=== PATIENT | female | born 1985 | race Caucasian/White ===

== ENCOUNTER 2017-09-27 05:38 | Inpatient (IN) | payer OTHER ==
--- NOTE | 2017-09-26 20:51 | MH ---
cc: Ion Velasquez MD DATE OF ADMISSION: 09/27/2017 HISTORY OF PRESENT ILLNESS: The patient is a 31-year-old female, 2, para 1. Patient is 39 weeks plus with previous history of section, for elective repeat section at term. The patient's obstetrical history is uncomplicated. Group B strep status is negative. Diabetic screening was negative. The patient's blood type is A positive. Previous section performed in 2014 at 41 weeks' gestation, delivery of a viable female weighing 8 pounds 7 ounces. The patient's obstetrical course at that delivery was significant for excessive blood loss during the procedure. The patient did not require a transfusion. PAST MEDICAL HISTORY: The patient has had a history of seizures in the distant past. She has been free of any seizure activity. . ALLERGIES: THE PATIENT HAS NO KNOWN DRUG ALLERGIES. CURRENT MEDICATIONS: Include vitamins only. The patient has no other systemic or chronic disease conditions. FAMILY HISTORY: Noncontributory. SOCIAL HISTORY: The patient is . She is a full-time teacher. Denies alcohol, tobacco or illicit substance use. PHYSICAL EXAMINATION: GENERAL: The patient is a well-appearing, well-nourished female, in no acute distress. VITAL SIGNS: Stable. Blood pressure is 118/78, pulse and respiratory rate are normal. heart tones in the 140s to 150s. NECK: Shows no adenopathy or thyromegaly. Neck is supple, full range of motion. LUNGS: Clear in all gayle. CARDIAC: Regular rate and rhythm without murmur, rub or gallop. ABDOMEN: Gravid, full-term. Previous Pfannenstiel incision is notable for keloid scar, otherwise intact. No herniation. PELVIC: Deferred. EXTREMITIES: Symmetrical, full range of motion. There is no cyanosis, clubbing, or edema. NEUROLOGIC: Grossly intact, nonfocal. ASSESSMENT: The patient is a full-term intrauterine gestation with previous history of section, for elective repeat section at term. Group B streptococcus status is negative. Diabetic status, normal Glucola. The patient's blood type is A positive. Ion Velasquez MD [facility]/ANTONIO Fuentes: 09/26/2017, 08:12 PM , 08:49 PM
[~2017-09-27] VITALS: Ht 162.6 cm; Wt 78.0 kg
[~2017-09-27 05:38] MED LIST: FE T325T PO; IBUP600 PO; OXYC1SOL5 PO; PERI8.6T PO; PREN0.01 PO; VALT500T PO
[2017-09-27] MEDS ORDERED: LACTATED RINGER'S 1000 ML IV ONE (06:15)
[2017-09-27] MEDS ORDERED: CITRIC ACID-SODIUM CITRATE LIQ 30 ML UDC PO SCH (06:15)
[2017-09-27] MEDS ORDERED: ceFAZolin 2 GM PREMIX 50 ML IV SCH (06:15)
[2017-09-27] MEDS ORDERED: LACTATED RINGER'S 1000 ML IV SCH (06:15)
[2017-09-27 06:22] LABS: BACTERIA, URINE RARE /hpf; BILIRUBIN, URINE NEG (NEG); BLOOD, URINE NEG (NEG); GLUCOSE,URINE NEG (NEG); KETONE, URINE NEG (NEG); MUCUS URINE FEW /lpf (OCC); NITRITE,URINE NEG (NEG); SQUAMOUS EPITHELIAL CELL URINE 5 /hpf (0-5); TRANSITIONAL EPI CELLS, URINE <1 /hpf; URINE COLOR YELLOW (YELLW/STRAW); URINE LEUKOCYTE ESTERASE NEG (NEG)
[2017-09-27 06:22] LABS: AUTOMATED NEUTROPHIL # 5.8 TH/MM3 (1.8-7.7); BASOPHIL # 0.1 TH/MM3 (0-0.2); BASOPHIL % 0.9 % (0.0-2.0); EOSINOPHIL # 0.1 TH/MM3 (0-0.4); EOSINOPHIL % 0.7 % (0.0-4.0); HEMATOCRIT 34.2 % (35.0-46.0); HEMOGLOBIN 11.2 GM/DL (11.6-15.3); LYMPH % 31.6 % (9.0-44.0); LYMPHOCYTE # 3.1 TH/MM3 (1.0-4.8); MEAN CELL VOLUME 77.5 FL (80.0-100.0); MEAN CORPUSCULAR HEMOGLOBIN 25.3 PG (27.0-34.0); MEAN CORPUSCULAR HGB CONC 32.6 % (32.0-36.0); MEAN PLATELET VOLUME 7.5 FL (7.0-11.0); MONO % 7.4 % (0.0-8.0); MONOCYTE # 0.7 TH/MM3 (0-0.9); NEUT % 59.4 % (16.0-70.0); PLATELET COUNT 368 TH/MM3 (150-450); RED BLOOD COUNT 4.41 MIL/MM3 (4.00-5.30); RED CELL DISTRIBUTION WIDTH 14.1 % (11.6-17.2); WHITE BLOOD COUNT 9.7 TH/MM3 (4.0-11.0)
[2017-09-27] MEDS ORDERED: ACETAMINOPHEN 1000 MG/100 ML 100 ML IV ONE (06:58)
[2017-09-27] MEDS ORDERED: MORPHINE SULFATE PF 5 MG/10 ML VIAL ONE (06:58)
[2017-09-27] MEDS ORDERED: ACETAMINOPHEN 325 MG TAB PO PRN (07:30)
[2017-09-27] MEDS ORDERED: ONDANSETRON ODT 4 MG TAB PO PRN (07:30)
[2017-09-27] MEDS ORDERED: SIMETHICONE 80 MG CHEWABLE TAB PO PRN (07:30)
[2017-09-27] MEDS ORDERED: KETOROLAC TROMETHAMINE 60 MG/2 ML (IM) VIAL IM PRN (07:30)
[2017-09-27] MEDS ORDERED: SODIUM CHLORIDE 0.9% FLUSH 10 ML FLUSH IV FLUSH PRN (07:30)
[2017-09-27] MEDS ORDERED: OXYTOCIN 30 UNITS-500ML PREMIX 500 ML IV ONE (07:30)
--- NOTE | 2017-09-27 09:13 | PD.OB.DELI ---
Procedure Note Section Procedure Performed by Ion Velasquez Procedure: Repeat Low Transverse Sec Indication for delivery: Desired elective repeat Informed consent obtained: For anesthesia, For procedure Confirmed correct: Patient, Procedure, Site, Time-out taken Anesthesia: Spinal Medication prior to procedure: As documented in eMAR Monitoring during procedure: Blood pressure monitoring, ekg monitor, doppler, monitor, Pulse oximetry Urinary catheter: Inserted using sterile technique, To dependent drainage Sterile preparation: Duraprep, In usual fashion Position: Supine with wedge to right side, Supine with safety belt applied Operative Features Skin Incision: Pfannenstiel Uterine Incision: Low transverse w/knife / blunt ext, Low transverse w/knife / scissors Membranes Ruptured: Artificially Delivery date: Sep 27, 2017 Delivery time: 08:15 Infant: Female One Minute : 8 Five Minute : 9 Weight: 3645 kg Status of : Viable, Cord blood, Umbilical cord, Nursery present Placenta delivered: Intact Medications: Antibiotics, Oxytocin Estimated blood loss: 650cc Procedure tolerated: Well Maternal Complications: Other (keloid scar; uterine -abdominal adhesions) Maternal Condition: Stable Condition: Stable Ion Velasquez MD Sep 27, 2017 09:13
[2017-09-27] MEDS ORDERED: SODIUM CHLORID 0.9% 500 ML INJ 500 ML IV ONE (12:00)
[2017-09-27] MEDS ORDERED: ONDANSETRON HCL 4 MG/2 ML VIAL IV ONE (12:00)
[2017-09-27] MEDS ORDERED: OXYTOCIN 10 UNIT/ML AMP IV ONE (12:00)
[2017-09-27] MEDS ORDERED: LACTATED RINGER'S 1000 ML INJ 1,000 ML IV ONE (12:00)
[2017-09-27] MEDS ORDERED: DEXAMETHASONE SOD PHOS 4 MG/ML VIAL IV ONE (12:00)
[2017-09-27] MEDS ORDERED: LACTATED RINGER'S 1000 ML INJ 1,000 ML IV SCH (12:17)
[2017-09-27] MEDS ORDERED: OXYTOCIN 30 UNITS-500ML PREMIX 500 ML IV PRN (12:30)
--- NOTE | 2017-09-27 13:20 | MP ---
cc: Ion Velasquez MD DATE OF OPERATION: DATE OF PROCEDURE: 09/27/2017. PREOPERATIVE DIAGNOSES: Term intrauterine , previous section, for elective repeat section. PROCEDURE: Repeat low transverse section, excision of keloid skin scar, lysis of adhesions, delivery of viable female infant. POSTOPERATIVE DIAGNOSES: Term intrauterine , previous section, for elective repeat section. SURGEON: Ion Velasquez MD ANESTHESIA: Spinal. ESTIMATED BLOOD LOSS: 650 mL DRAINS: Negrete to gravity. OPERATIVE FINDINGS: The patient had a large keloid scar of her Pfannenstiel incision. Intra-abdominal and peritoneal adhesions were noted secondary to the previous section. INDICATIONS: The patient at term, previous section, had elected for elective repeat . DESCRIPTION OF PROCEDURE: The patient was taken to the operating room and underwent spinal anesthetic without complication. She had a Negrete catheter inserted by sterile technique. She was prepped and draped and a timeout was conducted and agreed by all present in the room. The patient previously received Ancef 2 grams prophylactically. She had excellent pain control. The incision initiated by making an elliptical type incision below the previous Pfannenstiel scar to enable excision of the keloid. The incision was carried down through the subcutaneous layer to the fascia, which was thin and attenuated. The fascia was then dissected. Rectus muscle was . Again, there was a significant scar tissue throughout. Entry into the peritoneal space was accomplished, meticulously. There was no complication with the bladder or any adjacent vital structures. Exposure of the lower uterine segment was accomplished. A transverse incision was made in the lower uterine segment with clear fluid and then with the aid of a vacuum extractor using a small Kiwi was applied to safely deliver the infant. There was no nuchal cord entanglement. A 3-vessel cord was noted. Apgars of the baby were 8 at 1 minute and 9 at 5. Cord blood was obtained. The placenta was then removed intact with trailing membranes. There was no retained tissue. The uterus was closed with a double layer of 0 Monocryl. First was a running locking suture, followed by a second imbricating suture of 0 Monocryl. Due to the distortion of the anatomy a small slight extension of the uterine incision had to be made in order to facilitate delivery and this was easily repaired with a 2-0 Monocryl. Good hemostasis was noted. The pelvis was irrigated. There was no active bleeding. Closure of the remaining peritoneal surface was made with a running suture of 2-0 Monocryl, and then the muscle bellies reapproximated in the midline. A piece of Interceed was placed to separate the plane between the rectus and the fascia due to extensive scarring. The fascia was closed starting at the angles using a #1 Vicryl suture and then suturing across the horizontal plane of the incision and then bringing the closure in the midline. Integrity of the closure was documented. A good reapproximation was noted. Hemostasis was excellent. The continuation of the dissection to remove the keloid was then performed using a fresh #10 blade, taking the upper portion of the keloid, allowing excision of the keloid with part of the peritoneal scar, which was not sent to pathology. The subcutaneous space was irrigated. Any active bleeding was cauterized and then the space was reapproximated with a running suture of 2-0 Monocryl. 4-0 Monocryl was used to reapproximate the skin edge with good result and then Steri-Strips were applied to the skin with Mastisol applied. Pressure dressing was applied. At at the end of the case, final count was correct. The patient was stable and the infant was doing well in the nursery. oIn Velasquez MD [facility]/TL , 01:00 PM , 01:19 PM
[2017-09-27] MEDS: SODIUM CHLORIDE 0.9% FLUSH 10 ML FLUSH IV FLUSH SCH (19:32)
[2017-09-27] MEDS: oxyCODONE/ACETAMINOPHEN 5 MG/325 MG TAB PO PRN (22:36)
[2017-09-28] MEDS: oxyCODONE/ACETAMINOPHEN 5 MG/325 MG TAB PO PRN ×4 (04:00→21:33)
[2017-09-28] MEDS: DOCUSATE SODIUM 50 MG/SENNA 8.6 MG TAB PO PRN (04:00)
[2017-09-28 06:02] LABS: AUTOMATED NEUTROPHIL # 6.5 TH/MM3 (1.8-7.7); BASOPHIL % 0.3 % (0.0-2.0); EOSINOPHIL % 0.3 % (0.0-4.0); HEMATOCRIT 24.6 % (35.0-46.0); HEMOGLOBIN 8.2 GM/DL (11.6-15.3); LYMPH % 29.9 % (9.0-44.0); LYMPHOCYTE # 3.2 TH/MM3 (1.0-4.8); MEAN CELL VOLUME 76.7 FL (80.0-100.0); MEAN CORPUSCULAR HEMOGLOBIN 25.4 PG (27.0-34.0); MEAN CORPUSCULAR HGB CONC 33.1 % (32.0-36.0); MEAN PLATELET VOLUME 7.6 FL (7.0-11.0); MONO % 8.6 % (0.0-8.0); MONOCYTE # 0.9 TH/MM3 (0-0.9); NEUT % 60.9 % (16.0-70.0); PLATELET COUNT 263 TH/MM3 (150-450); RED BLOOD COUNT 3.21 MIL/MM3 (4.00-5.30); RED CELL DISTRIBUTION WIDTH 14.1 % (11.6-17.2); WHITE BLOOD COUNT 10.7 TH/MM3 (4.0-11.0)
--- NOTE | 2017-09-28 08:40 | HHI.OB ---
Subjective Post Operative Day: 1 Remarks stable and nursing pain under adquate control Objective Result Diagram: 09/28/17 0514 Objective Remarks GENERAL: Well-nourished, well-developed patient. CARDIOVASCULAR: Regular rate and rhythm without murmurs, gallops, or rubs. RESPIRATORY: Breath sounds equal bilaterally. No accessory muscle use. ABDOMEN/GI: Abdomen soft, non-tender, bowel sounds present. bandage: Clean, dry and intact. Fundus: Firm, non-tender at umbilicus. GENITOURINARY: Light to moderate bleeding. EXTREMITIES: No cyanosis or edema, non-tender, without signs of DVT. Medications and IVs Current Medications Medications (Trade) Dose Ordered Sig/Collin Route Start Time Stop Time Status Last Admin (Bicitra Liq) 30 ml GLOBAL COMPENSATION MANAGER PO 09/27/17 06:15 09/30/17 06:14 09/27/17 07:30 Oxytocin 500 ml @ 100 mls/hr UNSCH X1 PRN IV 09/27/17 12:30 09/28/17 12:29 (NS Flush) 2 ml BID IV FLUSH 09/27/17 09:00 09/27/17 19:32 (NS Flush) 2 ml UNSCH PRN IV FLUSH 09/27/17 07:30 09/28/17 02:50 (Mylicon Chew) 80 mg QID PRN PO 09/27/17 07:30 (Tylenol) 650 mg Q6H PRN PO 09/27/17 07:30 (Motrin) 600 mg Q6H PRN PO 09/27/17 07:30 (Percocet 5-325 Mg) 1 tab Q4H PRN PO 09/27/17 07:30 (Percocet 5-325 Mg) 2 tab Q4H PRN PO 09/27/17 07:30 09/28/17 04:00 (Tiffany-Colace) 2 tab Q12H PRN PO 09/27/17 07:30 09/28/17 04:00 (M-M-R Ii Inj) 0.5 ml ONCE ONCE SQ 09/28/17 16:00 09/28/17 16:01 (Boostrix Inj) 0.5 ml ONCE ONCE IM 09/28/17 16:00 09/28/17 16:01 (Zofran Odt) 4 mg Q6H PRN PO 09/27/17 07:30 Assessment/Plan Assessment and Plan unremarkable POD 1 venifer for lowo Hgb with no symptoms Tracy Garcia MD Sep 28, 2017 08:40
[2017-09-28] MEDS: SODIUM CHLORIDE 0.9% FLUSH 10 ML FLUSH IV FLUSH SCH ×2 (09:00→21:00)
[2017-09-28] MEDS: IBUPROFEN 600 MG TAB PO PRN ×4 (09:13→21:32)
[2017-09-28] MEDS ORDERED: IRON SUCROSE INJ 200 MG in SODIUM CHLORIDE 0.9% INJ 100 ML IV ONE (10:00)
[2017-09-28] MEDS ORDERED: DIPHTH/TETANUS/ACEL PERTUSSIS (BOOSTER) 0.5 ML VIAL/PFS IM ONE (16:00)
[2017-09-28] MEDS ORDERED: MEASLES, MUMPS, RUBELLA VACCINE 0.5 ML VIAL SQ ONE (16:00)
[2017-09-29] MEDS: IBUPROFEN 600 MG TAB PO PRN ×4 (03:39→21:58)
[2017-09-29] MEDS: oxyCODONE/ACETAMINOPHEN 5 MG/325 MG TAB PO PRN ×4 (03:40→21:58)
--- NOTE | 2017-09-29 07:53 | HHI.OB ---
Subjective Post Operative Day: 2 Remarks POD#2; Stable, c/o minor drainage from left side of incision, BF well. Objective Result Diagram: 09/28/17 0514 Objective Remarks GENERAL: Well-nourished, well-developed patient. CARDIOVASCULAR: Regular rate and rhythm without murmurs, gallops, or rubs. RESPIRATORY: Breath sounds equal bilaterally. No accessory muscle use. ABDOMEN/GI: Abdomen soft, non-tender, bowel sounds present. bandage: Clean, dry and intact. Dried blood on left pole of incision, NO erythema/induration Fundus: Firm, non-tender at umbilicus. GENITOURINARY: Light to moderate bleeding. EXTREMITIES: No cyanosis or edema, non-tender, without signs of DVT. Medications and IVs Current Medications Medications (Trade) Dose Ordered Sig/Collin Route Start Time Stop Time Status Last Admin (Bicitra Liq) 30 ml AVIATION PROJECT MANAGER PO 09/27/17 06:15 09/30/17 06:14 09/27/17 07:30 (NS Flush) 2 ml BID IV FLUSH 09/27/17 09:00 09/28/17 09:00 (NS Flush) 2 ml UNSCH PRN IV FLUSH 09/27/17 07:30 09/28/17 02:50 (Mylicon Chew) 80 mg QID PRN PO 09/27/17 07:30 (Tylenol) 650 mg Q6H PRN PO 09/27/17 07:30 (Motrin) 600 mg Q6H PRN PO 09/27/17 07:30 09/29/17 03:39 (Percocet 5-325 Mg) 1 tab Q4H PRN PO 09/27/17 07:30 09/29/17 03:40 (Percocet 5-325 Mg) 2 tab Q4H PRN PO 09/27/17 07:30 09/28/17 09:14 (Tiffany-Colace) 2 tab Q12H PRN PO 09/27/17 07:30 09/28/17 04:00 (Zofran Odt) 4 mg Q6H PRN PO 09/27/17 07:30 Assessment/Plan Assessment and Plan unremarkable POD 2; S/P repeat CD, extensive lysis of adhesions, revision of keloid scar normal healing of incision, anemic ,s/p IV iron plan discharge POD#3 Discharge Planning POD#3 Ion Velasquez MD Sep 29, 2017 07:53
--- NOTE | 2017-09-29 07:55 | HHI.DS ---
Admission Date Sep 27, 2017 at 05:38 Admitting Diagnosis Diagnosis: Delivery Date: Sep 27, 2017 : Repeat : Female Brief History Repeat cd with lysis of adhesions,excision of keloid scar Pt Condition on Discharge: Good Discharge Disposition: Discharge Home Discharge Instructions Diet Instructions: As Tolerated, No Restrictions Activities You Can Perform: Shower Only-No Bath Activities to Avoid: Prolonged Standing, Strenuous Activity, Driving, Sexual Activity Ion Velasquez MD Sep 29, 2017 07:55
[2017-09-29] MEDS: DOCUSATE SODIUM 50 MG/SENNA 8.6 MG TAB PO PRN ×2 (09:33→21:58)
[2017-09-29 12:33] LABS: HEMATOCRIT 26.7 % (35.0-46.0); HEMOGLOBIN 8.8 GM/DL (11.6-15.3)
[2017-09-29 20:06] VITALS: BP 125/83; PULSE 72; RESP 17; TEMP 98.3
[2017-09-30] MEDS: IBUPROFEN 600 MG TAB PO PRN ×2 (04:54→11:59)
[2017-09-30] MEDS: oxyCODONE/ACETAMINOPHEN 5 MG/325 MG TAB PO PRN ×2 (04:54→11:59)
[2017-09-30] MEDS ORDERED: IBUP-232 PO (07:00)
[2017-09-30] MEDS ORDERED: PERC5TAB12 PO (07:00)
[2017-09-30] MEDS ORDERED: FERR325T18 PO (07:53)
--- NOTE | 2017-09-30 07:57 | HHI.OB ---
Subjective Post Operative Day: 3 Remarks Doing well, pain controlled, vaginal bleeding less than menses, Objective Vitals/I&O Vital Signs Date Time Temp Pulse Resp B/P (MAP) Pulse Ox O2 Delivery O2 Flow Rate FiO2 09/29/17 20:06 98.3 72 17 125/83 (97) Result Diagram: 09/29/17 1204 Objective Remarks GENERAL: Well-nourished, well-developed patient. CARDIOVASCULAR: Regular rate and rhythm without murmurs, gallops, or rubs. RESPIRATORY: Breath sounds equal bilaterally. No accessory muscle use. ABDOMEN/GI: Abdomen soft, non-tender, bowel sounds present. Did not inspect bandage, patient breast-feeding very encounter. Fundus: Firm, non-tender at umbilicus. GENITOURINARY: Light to moderate bleeding. EXTREMITIES: No cyanosis or edema, non-tender, without signs of DVT. Medications and IVs Current Medications Medications (Trade) Dose Ordered Sig/Collin Route Start Time Stop Time Status Last Admin (NS Flush) 2 ml BID IV FLUSH 09/27/17 09:00 09/28/17 09:00 (NS Flush) 2 ml UNSCH PRN IV FLUSH 09/27/17 07:30 09/28/17 02:50 (Mylicon Chew) 80 mg QID PRN PO 09/27/17 07:30 (Tylenol) 650 mg Q6H PRN PO 09/27/17 07:30 (Motrin) 600 mg Q6H PRN PO 09/27/17 07:30 09/30/17 04:54 (Percocet 5-325 Mg) 1 tab Q4H PRN PO 09/27/17 07:30 09/30/17 04:54 (Percocet 5-325 Mg) 2 tab Q4H PRN PO 09/27/17 07:30 09/28/17 09:14 (Tiffany-Colace) 2 tab Q12H PRN PO 09/27/17 07:30 09/29/17 21:58 (Zofran Odt) 4 mg Q6H PRN PO 09/27/17 07:30 Assessment/Plan Assessment and Plan 31-year-old 002 status post repeat low transverse at 39 weeks 1. Postoperative day #3: Afebrile, vital signs stable, meeting milestones, discharge home today. Discussed and postoperative precautions, expectations and follow-up. Looked patient up on PDMP, reviewed report. -Female , likely discharged home today, has had issues with weight gain. If she needs to stay stay today discussed that stay close room may be available 2. Anemia: Status post IV iron, patient asymptomatic, being minimal, sent with p.o. iron. Yariel Chow MD Sep 30, 2017 07:57
[2017-09-30] MEDS: SODIUM CHLORIDE 0.9% FLUSH 10 ML FLUSH IV FLUSH SCH (08:24)
== END 2017-09-30 13:59 | disposition home or self-care (01) | DRG 766 ==
LOC: H2EB 05:38 → H1EA 10:41
PROVIDERS: ADMIT Obstetrics & Gynecology; ATTEND Obstetrics & Gynecology
PROC: 10D00Z1 Extraction of Products of Conception, Low, Open Approach (ICD-10-PCS; principal; 2017-09-27)
PROC: 0HB7XZZ Excision of Abdomen Skin, External Approach (ICD-10-PCS; 2017-09-27)
PROC: 3E033GC Introduction of Other Therapeutic Substance into Peripheral Vein, Percutaneous Approach (ICD-10-PCS; 2017-09-28)
DX: O34.211 Maternal care for low transverse scar from previous cesarean delivery (principal); O90.81 Anemia of the puerperium; D64.9 Anemia, unspecified; L91.0 Hypertrophic scar; Z37.0 Single live birth; Z3A.39 39 weeks gestation of pregnancy
CPT/HCPCS: 59025; 80307; 81001; 85014; 85018; 85025; 86850; 86900; 86901; 90715; C1765; J0131; J0690; J1100; J1756; J2274; J2405; J2590; J7040; J7120